=== PATIENT | female | born 2000 | race Caucasian/White ===

== ENCOUNTER 2018-02-12 11:06 | Emergency (ER) | payer OTHER ==
[~2018-02-12] VITALS: Ht 162.6 cm; Wt 85.5 kg
[2018-02-12 11:10] VITALS: TEMP 36.8; Ht 162.6 cm; Wt 85.5 kg
[2018-02-12] MEDS ORDERED: NITR-5 PO (11:35)
[2018-02-12] MEDS ORDERED: PHEN-876 PO (11:35)
[2018-02-12] MEDS ORDERED: PHENAZOPYRIDINE HCL 200 MG TAB PO STA (11:56)
[2018-02-12] MEDS ORDERED: NITROFURANTOIN MONOHYDRATE 100 MG CAP PO STA (11:56)
[2018-02-12 12:00] VITALS: BP 145/70; PULSE 67; O2SAT 100
[2018-02-12] MEDS ORDERED: BCPILLS PO (12:14)
--- NOTE | 2018-02-12 17:10 | EMERGENCY ROOM VISIT NOTE ---
History First contact with patient: 11:13 Chief Complaint: URINARY SYMPTOMS Stated Complaint: BURNING WHILE URINATING, VAGINAL PAIN Nursing Triage Summary: Patient states "I think I have an UTI. I have frequency, burning with urination and vaginal pain since this morning." History of Present Illness The patient is a 17 year old female who presents to the Emergency Room with complaints of increased urinary frequency, urgency and discomfort that started this morning upon awakening. Patient does report a prior history of UTI, and reports that this feels the same. She does also report mild vaginal discomfort. She denies any vaginal drainage, rectal pain or abdominal pain. She also denies any fevers, chills, nausea or vomiting. She rates her discomfort an 8 out of 10. Review of Systems 10 system review was performed and was negative except for pertinent positives and negatives as indicated in history of present illness Past Medical/Surgical History Medical Problems: (1) UTI (urinary tract infection) Surgical Problems: (1) No history of previous surgery Family History Unremarkable Social History Smoking Status: Never Smoker Alcohol Use: none Marital Status: single Occupation Status: [place] [employer] student Current/Historical Medications Scheduled Control Pills ( Control Pills), 1 TAB PO DAILY Nitrofurantoin Monohyd Macrocr (Macrobid), 100 MG PO BID Scheduled PRN Phenazopyridine HCl (Pyridium), 200 MG PO TID PRN for DYSURIA Physical Exam Vital Signs Date Time Temp Pulse Resp B/P (MAP) Pulse Ox O2 Delivery O2 Flow Rate FiO2 02/12/18 12:00 67 18 145/70 100 Room Air 02/12/18 11:10 36.8 77 18 154/100 100 Room Air Physical Exam CONSTITUTIONAL: Healthy and well nourished. Alert and oriented X 3 with positive affect. HEENT: Normocephalic, atraumatic. Pupils equal, round and reactive. GASTROINTESTINAL: Bowel sounds present in all quadrants. Soft and nontender to palpation. Negative CVA tenderness. MUSCULOSKELETAL: Full range of motion of all joints without discomfort. INTEGUMENTARY: No rash or other significant dermatologic conditions noted. NEUROLOGIC: No focal neurologic deficits noted. Medical Decision & Procedures Laboratory Results Test 02/12/18 11:16 Urine dip is consistent with infection. Urine cultures were ordered and pending. Urine is negative. Medications Administered Medications (Trade) Dose Ordered Sig/Didi Route Start Time Stop Time Status Last Admin Dose Admin Nitrofurantoin Macrocrystals (Macrobid Cap) 100 mg NOW STAT PO 02/12/18 11:56 02/12/18 11:58 DC 02/12/18 11:56 100 MG Phenazopyridine HCl (Pyridium Tab) 200 mg NOW STAT PO 02/12/18 11:56 02/12/18 11:58 DC 02/12/18 11:56 200 MG ED Course Patient history and physical exam were performed. Nurse's notes were reviewed. Vital signs were reviewed, showing a blood pressure of 154/100. Urine dip is consistent with infection. Urine was negative. Urine cultures were ordered and are pending. The patient was administered Macrobid and Pyridium while in the emergency department, and received prescriptions for the same. The patient was encouraged to follow-up with [facility] if symptoms persist, otherwise instructed to return to the emergency department for any progressively worsening symptoms, vomiting or fever. Patient was happy with plan of care, voiced understanding of all discharge instructions, and rated her discomfort a 6 out of 10 at the conclusion of my exam. Medical Decision Medication Reconcilliation Current Medication List: was personally reviewed by me Blood Pressure Screening Patient's blood pressure: Elevated blood pressure Blood pressure disposition: Elevated BP felt to be situational Impression Primary Impression: Urinary tract infection Departure Information Dispostion Home / Self-Care Condition GOOD Prescriptions Nitrofurantoin Monohyd Macrocr (Macrobid) 100 Mg Cap 100 MG PO BID for 5 Days, #10 CAP Prov: Flip Marks PA 02/12/18 Phenazopyridine HCl (Pyridium) 200 Mg Tab 200 MG PO TID Y for DYSURIA, #6 TAB Prov: Flip Mraks PA 02/12/18 Referrals No Doctor, Assigned (PCP) Forms HOME CARE DOCUMENTATION FORM, IMPORTANT VISIT INFORMATION Patient Instructions UTI, My [facility] [employer] [facility] Additional Instructions Complete all Macrobid antibiotics as prescribed. Pyridium as needed for urinary discomfort. Increase fluid intake. Follow-up with [facility] if symptoms are not improving within the next 3 days. Return to the emergency department for progressively worsening pain, fever or vomiting. Problem Qualifiers Primary Impression: Urinary tract infection Urinary tract infection type: acute cystitis Hematuria presence: with hematuria Qualified Codes: N30.01 - Acute cystitis with hematuria
== END 2018-02-12 12:24 | disposition home or self-care (01) ==
LOC: C.EDB 11:07 → C.EDC 12:24
DX: N39.0 Urinary tract infection, site not specified (principal); Z79.3 Long term (current) use of hormonal contraceptives; R03.0 Elevated blood-pressure reading, without diagnosis of hypertension